=== PATIENT | female | born 1965 | race Caucasian/White ===

== ENCOUNTER 2019-02-14 15:00 | Outpatient (RCR) | payer OTHER, SELFPAY ==
--- NOTE | 2019-02-01 10:00 | HP.PTEVAL ---
Patient's Visit Information SAPPHIRE CASTELLON is a 53 year old F referred to Physical Therapy by Matty Saravia MD with a diagnosis of TROCHANTERIC BURSITIS OF RIGHT HIP. Date of Evaluation: 02/01/19 Physical Therapist: Sapphire Pearl PT, Cert MDT - Visit Plan Frequency: 2-3x /Week Duration: 4-6 Weeks Plan: ULTRASOUND TO LOW BACK AND RIGHT HIP, LAND AND POSSIBLY AQUATIC THERAPY FOR PAIN RELEIF, POSTURE CORRECTION/STRENGTHENING, INSTRUCTION IN APPROPRIATE BODY MECHANICS AND ACTIVITY MODIFICATIONS. DLS STARTING WITH A NEUTRAL SPINE PROGRESSING ROM TOLERATED. SILVIA LE ROM, STRETCHING AND STRENGTHENING. HEP INSTRUCTION. 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 Disability: NO. Present symptoms: RIGHT HIP. PAIN, NUMBNESS AND TINLGING DOWN THE OUTSIDE OF THE RIGHT LEG TO THE ANKLE. SILVIA LOW BACK PAIN. NO LEFT LE SX'S. Present since: ABOUT 6 MONTHS AGO. Pain Scale: WORST 7/10, LEAST 3/10. Currently: 4/10. Commenced as a result of: OVER COMPENSATING FROM SX ON LEFT TOE IN MAY 2018 DUE TO WEARING A BOOT. Symptoms at onset: RIGHT HIP. Worse: SITTING, LAYING, STANDING, WALKING - WALKING IS THE WORST, RISING FROM SITTING, INITIATING GAIT AFTER PROLONGED SITTING, TRYING TO SLEEP. Better: NOTHING. Disturbed sleep: YES. Previous history/Previous treatment: LONG HISTORY OF EPISODIC LOW BACK PAIN X ABOUT 5 OR MORE YEARS MAINLY MANAGED WITH CHIROPRACTOR. HISTORY OF RIGHT HIP BUSITIS TREATED 2 TIMES BY [facility] A LONG TIME AGO LIKE 20 YEARS AGO TREATED WITH CORTISONE SHOTS. NO BACK SURGERY. NO HIP SURGERY. PATIENT REPORTS HER GAIT STARTED TO CHANGE IN EARLY MAR 2018 WHEN HER LEFT TOE TENDON WAS RUPTURED. PAIN DEVELOPED MORE SO IN AUG 2018 AFTER WEARING BOOT FOR LEFT FOOT SURGERY. Coughing/sneezing/straining: NEGATIVE. Gait: PAINFUL. LIMP ON LEFT FOOT BECAUSE OF STILL HEALING FROM LEFT FOOT SURGERY. Difficulty initiating urinatin: NO. Accidents: NO. Unexplained weight loss: NO. Imaging: NONE RECENT. 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 SOME REOCCURANCE OF HEAD AND NECK PAIN CURRENTLY. Recent major surgery: RIGHT BUNION SX 2015. LEFT TOE TENDON REPAIR MAY 2018. PLOF (Prior Level of Function): UNLIMITED UNTIL MAR 2018. OTHER: LAST CHIROPRACTIC VISIT FOR HIP PAIN WAS YESTERDAY - ACCUPUNCTION - TEMPORARY RELIEF. WITH 2 WEEKS OF CHIROPRACIC IT IS NOT GETTING BETTER. - Objective Sitting/Standing Posture: POOR. Lordosis: NORMAL. Lateral shift: NO. Relevant shift: N/A. Active Correction of posture: NE. Other Observations: ANTALGIC GAIT WITH DECREASED CADANCE AND LIMP ON LEFT FOOT. Motor deficit: SILVIA LE'S 5/5 WITH MMT'ING EXCEPT HIPS 4/5. Sensory deficit: NO. ROM deficit: WFL. Reflexes: NT. Dural Signs: NEGATIVE SILVIA. Lumbar mvmt loss: flex - MOD - PROVOKES RIGHT LBP AND IS VERY STIFF. ext - MOD - SILVIA LBP. R SG - MIN. L SG - MOD - SILVIA LBP RIGHT > LEFT AND RIGHT HIP/BUTTOCK PAIN. Core strength: POOR. Palpation: TENDERNESS WITH PALPATION OF RIGHT BUTTOCK, GREATER TROCH AND IT BAND REGIONS. NO ACUTE LUMBAR TENDERNESS. - Goals Goal 1:: DECREASE C/O LOW BACK AND RIGHT LE SX'S. Goal Time Frame: 4-6 Weeks Goal 2:: IMPROVE SITTING, STANDING, WALKING, ADL, WORK AND SLEEP FUNCTION Goal Time Frame: 4-6 Weeks Goal 3:: INSTRUCT IN PROPHYLAXIS Goal Time Frame: 4-6 Weeks - Rehabilitation Potential Rehabilitation Potential: Fair - Anticipated Interventions Patient/Client Instruction: Educate patient on: Condition, Plan of Care, Risk Factors, Benefits of Fitness Program For the Purpose of:: To improve self management Therapeutic Exercise to Include: Strength training, Body mechanics, Postural training, Flexibilty training, Gait and locomotor training, In an aquatic setting, Dynamic Lumbar Stabilization For the Purpose of:: To decrease pain, To increase ROM, To improve muscle performance and motor function, To increase tolerance to activity/condition/position, To improve ability of physical actions for home/community/work/leisure, To improve gait and locomotor functions Ultrasound (thermal/non thermal): Yes For the Purpose of:: To decrease pain, To decrease swelling/inflammation, To improve nutrient delivery to tissue Thank you for the opportunity to evaluate your patient. For Medicare and Medicare HMO plans, please review the plan of care and approve it. It will need to be FAXED BACK to us at [phone] for Medicare purposes. For Medicare only, by signing this I certify the plan of care. Please let me know if there are questions or concerns regarding this plan of care. Physician Signature: Date:
--- NOTE | 2019-04-11 17:46 | HP.PTDCNRP_ITS ---
HP - Discharge Summary (1) - Patient Information SAPPHIRE CASTELLON was seen in my office for initial evaluation on 02/01/19. The following Plan of Care was established for this patient: Initial Frequency: 2-3x /Week Initial Duration: 4-6 Weeks - Anticipated Interventions Patient/Client Instruction: Educate patient on: Condition, Plan of Care, Risk Factors, Benefits of Fitness Program For the Purpose of:: To improve self management Therapeutic Exercise to Include: Strength training, Body mechanics, Postural training, Flexibilty training, Gait and locomotor training, In an aquatic setting, Dynamic Lumbar Stabilization For the Purpose of:: To decrease pain, To increase ROM, To improve muscle performance and motor function, To increase tolerance to activity/condi tion/position, To improve ability of physical actions for home/community/work/leisure, To improve gait and locomotor functions Ultrasound (thermal/non thermal): Yes For the Purpose of:: To decrease pain, To decrease swelling/inflammation, To improve nutrient delivery to tissue This patient was last seen in our office 02/15/19. Pertinent comments regarding their Physical therapy will appear below: This patient has not returned to Physical Therapy and is appropriate to return to MD for further follow-up as needed. At this point I will be discontinuing this patient from physical therapy. I would be happy to see this patient again in the future if found appropriate by the physician. Thank you! Sapphire Pearl, PT, Cert MDT
== END 2019-02-14 19:00 | disposition home or self-care (01) ==
LOC: PT 15:00
PROVIDERS: Family Provider Family Medicine; PCP Family Medicine; Referring Provider Orthopaedic Surgery; Visit Provider Orthopaedic Surgery
DX: M70.61 Trochanteric bursitis, right hip (principal)
CPT/HCPCS: 97014; 97035; 97162; 97530; G0283